=== PATIENT | female | born 1975 | race Caucasian/White ===

== ENCOUNTER 2018-03-21 07:56 | Day surgery (SDC) | payer OTHER ==
[2018-03-21] MEDS ORDERED: PROPOFOL 20 ML (10:06)
[2018-03-21] MEDS ORDERED: LIDOCAINE 100 MG SYRINGE (10:06)
[2018-03-21] MEDS ORDERED: FENTAnyl 50 MCG/ML VIAL (10:06)
== END 2018-03-21 12:42 | disposition home or self-care (01) ==
LOC: GIL 07:56
DX: K44.9 Diaphragmatic hernia without obstruction or gangrene (principal); K21.0 Gastro-esophageal reflux disease with esophagitis; K29.70 Gastritis, unspecified, without bleeding
CPT/HCPCS: 43239; 84703; 88305